=== PATIENT | male | born 1995 | race Hispanic/Latino ===

== ENCOUNTER 2018-01-18 16:16 | Emergency (ER) | payer OTHER ==
[2018-01-18] MEDS ORDERED: HYOSCYAMINE SULFATE 0.125 MG TAB.SUBL SL ONE (17:29)
[2018-01-18] MEDS ORDERED: ACETAMINOPHEN 325 MG TAB ONE (17:29)
[2018-01-18 17:49] LABS: BASOPHILS % (AUTO) 0.2 % (0.0-5.0); EOSINOPHILS % (AUTO) 0.3 % (0.0-8.0); HEMATOCRIT 43.4 % (42-54); LYMPHOCYTES % (AUTO) 12.4 % (21.0-51.0); MEAN CORPUSCULAR HGB CONC 34.8 g/dL (32.0-36.0); MEAN CORPUSCULAR VOLUME 83.4 fL (79-99); MONOCYTES % (AUTO) 7.8 % (3.0-13.0); NEUTROPHILS % (AUTO) 79.3 % (40.0-77.0); PLATELET COUNT (AUTO) 315 K/uL (130-400); RED CELL DISTRIBUTION WIDTH 13.3 % (11.0-15.5); WHITE BLOOD COUNT (AUTO) 10.8 K/uL (4.8-10.8)
[2018-01-18 18:07] LABS: POTASSIUM 3.3 mmol/L (3.5-5.1)
[2018-01-18 18:10] LABS: ALBUMIN 4.4 g/dL (3.5-5.0); BILIRUBIN,DIRECT 0.2 mg/dL (0.0-0.3); TOTAL PROTEIN, SERUM 8.1 g/dL (6.0-8.3)
[2018-01-18 18:31] LABS: OCCULT BLOOD STOOL SINGLE ONLY NEGATIVE (NEGATIVE)
[2018-01-18] MEDS ORDERED: ONDANSETRON ODT 4 MG TAB ONE (19:10)
== END 2018-01-18 19:16 | disposition home or self-care (01) ==
LOC: EDH 16:16
DX: K52.9 Noninfective gastroenteritis and colitis, unspecified (principal); R50.9 Fever, unspecified; Z98.890 Other specified postprocedural states
CPT/HCPCS: 36415; 80048; 80076; 82270; 85025; 87046; 87205; 87324

== ENCOUNTER 2018-09-18 22:17 | Emergency (ER) | payer OTHER ==
[2018-09-18 22:35] LABS: EOSINOPHILS % (AUTO) 1.7 % (0.0-8.0); HEMATOCRIT 41.4 % (42-54); LYMPHOCYTES % (AUTO) 45.5 % (21.0-51.0); MEAN CORPUSCULAR HEMOGLOBIN 28.6 pg (27.0-33.0); MEAN CORPUSCULAR HGB CONC 34.3 g/dL (32.0-36.0); MEAN CORPUSCULAR VOLUME 83.6 fL (79-99); MONOCYTES % (AUTO) 8.4 % (3.0-13.0); NEUTROPHILS % (AUTO) 43.4 % (40.0-77.0); NUCLEATED RED BLOOD CELLS 0.1 % (0.0-0.19); PLATELET COUNT (AUTO) 330 K/uL (130-400); RED BLOOD CELL COUNT(AUTO) 4.95 MIL/uL (4.50-6.20); RED CELL DISTRIBUTION WIDTH 13.3 % (11.0-15.5); WHITE BLOOD COUNT (AUTO) 8.3 K/uL (4.8-10.8)
[2018-09-18 22:49] LABS: CREATININE 1.1 mg/dL (0.5-1.5); POTASSIUM 3.3 mmol/L (3.5-5.1)
[2018-09-18 22:54] LABS: ALBUMIN 4.1 g/dL (3.5-5.0); BILIRUBIN,TOTAL 0.5 mg/dL (0.2-1.0); TOTAL PROTEIN, SERUM 7.5 g/dL (6.0-8.3)
[2018-09-18] MEDS ORDERED: SODIUM CHLORIDE 0.9% 1000ML 1,000 ML IV ONE (23:25)
[2018-09-18] MEDS ORDERED: POTASSIUM CHLORIDE 10% ELIXIR 20 MEQ/15 ML UDCUP ONE (23:25)
[2018-09-18] MEDS ORDERED: KETOROLAC TROMETHAMINE 15MG/ML ONE (23:26)
[2018-09-18 23:35] LABS: APPEARANCE,URINE Clear (CLEAR); BILIRUBIN,URINE Negative (NEGATIVE); COLOR,URINE Yellow (YELLOW); GLUCOSE, URINE (UA) Negative (NEGATIVE); KETONES,URINE Negative (NEGATIVE); LEUKOCYTE ESTERASE ,URINE Negative (NEGATIVE); NITRATE,URINE Negative (NEGATIVE); OCCULT BLOOD,URINE Negative (NEGATIVE); PROTEIN,URINE Negative (NEGATIVE)
[2018-09-18 23:43] LABS: AMPHET/METH SCREEN,URINE NEGATIVE (NEGATIVE); BARBITURATE SCREEN, URINE NEGATIVE (NEGATIVE); BENZODIAZEPINES SCREEN,URINE NEGATIVE (NEGATIVE); CANNABINOID SCREEN,URINE NEGATIVE (NEGATIVE); COCAINE SCREEN,URINE NEGATIVE (NEGATIVE); OPIATE SCREEN,URINE NEGATIVE (NEGATIVE); PHENCYCLIDINE SCREEN,URINE NEGATIVE (NEGATIVE)
[2018-09-19] MEDS ORDERED: ACETAMINOPHEN EXTRA STRENGTH 500 MG TABLET ONE (00:05)
[2018-09-19] MEDS ORDERED: SUCRALFATE 1 GM TABLET ONE (00:06)
== END 2018-09-19 00:58 | disposition home or self-care (01) ==
LOC: EDH 22:17
DX: R07.89 Other chest pain (principal); E87.6 Hypokalemia; E86.0 Dehydration; I44.0 Atrioventricular block, first degree
CPT/HCPCS: 36415; 71046; 80053; 80305; 81003; 84484; 85025; 93005; 96361; 96374; 99284; J1885; J7030

== ENCOUNTER 2025-08-16 03:48 | Emergency (ER) | payer BC ==
[~2025-08-16] VITALS: Ht 177.8 cm; Wt 87.5 kg
[2025-08-16 04:26] LABS: RAPID GROUP A STREP negative (NEGATIVE)
[2025-08-16 04:28] LABS: SARS-CoV-2, RNA, NAAT NEGATIVE SARS CoV-2 (NEGATIVE)
[2025-08-16 04:34] LABS: INFLUENZA TYPE A Negative For Type A (NEGATIVE); INFLUENZA TYPE B Negative For Type B (NEGATIVE)
[2025-08-16 05:23] VITALS: TEMP 103.2
--- NOTE | 2025-08-16 05:26 | ERN ---
ED Note History of Present Illness Stated Complaint: C/O COUGH,BODYACHES,SORE THROAT,FEVER, CHILLS Chief Complaint: Cough Time Seen by MD: 04:29 Dictation: This is a 30-year-old male who presented to the emergency room with complaints of URI symptoms and high fevers up to 101.2. All this started yesterday with a profuse chills and fever along with body aches. He also reported sore throat. No recent travel or other sick contacts. He is accompanied by his father. Temperature 101.2 pulse 69 respirations 20 blood pressure 130/76 with a pulse oximetry of 99% on room air Allergies: Coded Allergies: No Known Allergies (Unverified Allergy, Unknown, 08/16/25) Past Medical History Past Medical History: No Pertinent History Surgical History: None Family History: Negative Social History: Negative RN Note Reviewed/Agreed w/PFSH: Yes Review of System Dictation Constitutional: Positive for fever,chills, and severe body aches Eyes: Negative for injury, pain,redness, and discharge ENT: Negative for injury,pain or swelling positive for sore throat Cardiovascular: Negative for chest pain, palpitations, and edema Respiratory: Negative for shortness of breath, positive for cough, and congestion Abdomen/GI: Negative for abdominal pain, nausea, vomiting, diarrhea, and constipation Back: Negative for injury and pain : Negative for injury, bleeding and discharge MS/Extremity: Negative for injury and deformity Skin: Negative for rash, and discoloration Neuro: Negative for headache, weakness, numbness, tingling, and seizure Psych: Negative for suicide ideation, homicidal ideation, and hallucinations Initial Vital Sign VS Vital Signs Date Time Temp Pulse Resp B/P (MAP) Pulse Ox O2 Delivery O2 Flow Rate FiO2 08/16/25 03:50 101.1 69 20 130/76 99 Room Air 08/16/25 05:23 0 21 Physical Exam Dictation General: awake, alert, NAD appears flushed Head/Face: Normocephalic, atraumatic Eyes: PERRL, EOMI, vision at baseline ENT: oral cavity clear, TMs clear, no signs of infection Neck: Trachea midline, supple, no nuchal rigidity Cardiovascular: RRR, normal S1/S2, No MRGs, no JVD Respiratory: CTAB, no respiratory distress, No rales or wheezes Abdomen: Soft, non-tender, non-distended, normal bowel sounds, no guarding or rebound. Skin: Warm, dry, normal turgor, no rash MS/Extremity: Pulses equal, no cyanosis, neurovascular intact, FROM Neuro: COAx4, GCS 15, strength 5/5, CN 2-12 intact, normal cerebellar exam, normal gait, Psych: Normal behavior, mood, and affect normal Extremities-trace edema without any palpable cords, Homans sign is negative Results (Laboratory/Radiology) Laboratory/Radiology Laboratory Tests Test 08/16/25 04:00 08/16/25 05:38 Influenza Type A Antigen Negative For Type A Influenza Type B Antigen Negative For Type B SARS-CoV-2, RNA, NAAT NEGATIVE SARS CoV-2 Group A Streptococcus Rapid negative (NEGATIVE) White Blood Count 7.0 K/uL (4.8-10.8) Red Blood Count 5.26 MIL/uL (4.50-6.20) Hemoglobin 14.7 g/dL (14.0-18.0) Hematocrit 43.4 % (42-54) Mean Corpuscular Volume 82.5 fL (79-99) Mean Corpuscular Hemoglobin 27.9 pg (27.0-33.0) Mean Corpuscular Hemoglobin Concent 33.9 g/dL (32.0-36.0) Red Cell Distribution Width 12.7 % (11.0-15.5) Platelet Count 321 K/uL (130-400) Mean Platelet Volume 9.2 fL (7.5-10.5) Immature Granulocyte % (Auto) 0.6 % (0-1) Neutrophils (%) (Auto) 69.3 % (40.0-77.0) Lymphocytes (%) (Auto) 11.4 % (21.0-51.0) L Monocytes (%) (Auto) 14.1 % (3.0-13.0) H Eosinophils (%) (Auto) 4.0 % (0.0-8.0) Basophils (%) (Auto) 0.6 % (0.0-5.0) Neutrophils # (Auto) 4.8 K/uL (1.8-7.7) Lymphocytes # (Auto) 0.8 K/uL (1.0-4.8) L Monocytes # (Auto) 1.0 K/uL (0.1-1.0) Eosinophils # (Auto) 0.28 K/uL (0.00-0.70) Basophils # (Auto) 0.04 K/uL (0.00-0.20) Absolute Immature Granulocyte (auto 0.04 K/uL (0-1) Nucleated Red Blood Cells 0.0 % (0.0-0.19) Sodium Level 139 mmol/L (136-145) Potassium Level 3.3 mmol/L (3.5-5.1) L Chloride Level 102 mmol/L (101-111) Carbon Dioxide Level 26 mmol/L (21-32) Blood Urea Nitrogen 19 mg/dL (7-18) H Creatinine 1.1 mg/dL (0.5-1.3) Glomerular Filtration Rate Calc 93 mL/min (>90) Random Glucose 103 mg/dL (70-105) Total Calcium 8.6 mg/dL (8.5-10.1) Labs Reviewed?: Yes ED Course ED Course Orders Procedure Category Date Status Time Covid Rna Naat LAB 08/16/25 Complete 04:01 Influenza Type A & B, LAB 08/16/25 Complete Rapid 04:01 Rapid (Group A Strep) LAB 08/16/25 Complete 04:01 Ketorolac PHA 08/16/25 Complete Tromethamine 30mg/Ml 05:30 Cbc With Differential LAB 08/16/25 Complete 05:24 Basic Metabolic Panel LAB 08/16/25 Complete 05:24 Urinalysis Profile LAB 08/16/25 Logged 05:24 Chest 1vw RAD 08/16/25 Taken 05:24 0.9%Nacl 1000ml (Ns PHA 08/16/25 In Process 1000ml) 05:30 Potassium Bicarb/Cit PHA 08/16/25 Complete Ac 25meq (K-Lyte Ta 06:30 Current Medications Medications (Trade) Dose Ordered Sig/Christiano Route PRN Reason Start Time Stop Time Status Last Admin Dose Admin Ketorolac Tromethamine (toRADol) 30 mg ONCE ONCE IM 08/16/25 05:30 08/16/25 05:32 DC 08/16/25 05:40 Potassium Bicarbonate (K-Lyte Tablet Eff 25 Meq Tablet.eff) 25 meq ONCE ONCE PO 08/16/25 06:30 08/16/25 06:33 DC Sodium Chloride 2,625 ml @ 875 mls/hr ONCE ONCE IV 08/16/25 05:30 08/16/25 08:29 08/16/25 05:40 Vital Signs Date Time Temp Pulse Resp B/P (MAP) Pulse Ox O2 Delivery O2 Flow Rate FiO2 08/16/25 05:23 103.3 89 19 148/79 100 Room Air* 0 21 08/16/25 03:50 101.1 69 20 130/76 99 Room Air Medical Decision Making MDM Differential diagnosis: Influenza, COVID, RSV, streptococcal pharyngitis, otitis media, acute viral syndrome This is a 30-year-old male who presented to the emergency room with complaints of URI symptoms and high fevers up to 101.2. All this started yesterday with a profuse chills and fever along with body aches. He also reported sore throat. No recent travel or other sick contacts. He is accompanied by his father. Temperature 101.2 pulse 69 respirations 20 blood pressure 130/76 with a pulse oximetry of 99% on room air 6:19 a.m. CBC is with a normal limits BNP shows a potassium of 3.3. Nasopharyngeal swabs for influenza, COVID and rapid strep were all negative. Chest x-ray is unremarkable for any focal infiltrate. Symptomatic management with antiemetics, antipyretics and NSAIDs . Hydration I updated the patient and son about unrevealing labs except for a mild hypokalemia. I explained to them that this may still be a viral syndrome. Rationale: Tests considered and ordered secondary to shared decision making include: Labs Previous outside records reviewed: Old ER visits. Risk of complication and/or morbidity or mortality of patient management: None Medications-Per medication reconciliation Need for hospitalization: Patient does not meet criteria for hospitalization. Need for emergency major/minor surgery: No There are no social concerns with this patient. Prescription drug management Prescriptions will include symptomatic care Patient's prior external medical records from other ER visits were reviewed by me as indicated. Prior testing and results from previous visits were reviewed. Prior tests were taken into account with medical decision making and resource utilization, independent historian/historians were used to obtain complete medical history. I independently interpreted the test that were performed, results were reviewed by me and considered findings on radiology if ordered. Medical management and examination interpretation discussions were had by me with other qualified healthcare professionals as indicated for the patient's care. Problem List Problem List: (1) Pharyngitis (2) Fever (3) URI (upper respiratory infection) DX & DISP Disposition: Discharge Departure Impression: Primary Impression: Pharyngitis Additional Impressions: Fever, URI (upper respiratory infection) Condition: Stable Additional Instructions: Patient and the caregiver have been informed of all the diagnostic tests and the imaging conducted during the today's visit to the emergency room and has verbalized understanding of the results I have personally reviewed and interpreted all diagnostic exams performed here in the ER today as well as the vital signs documented by the nursing staff. The patient is now being discharged to home and should follow up with the primary care physician or the specialist as directed by the ER staff. Referrals: EDNA OLVERA (PCP) HELENA CEJA MD Aug 16, 2025 05:26
[2025-08-16] MEDS: [UNRECOGNIZED DRUG - OTHER] IV ONE (05:40)
[2025-08-16 05:48] LABS: IMMATURE GRANULOCYTE ABSOLUTE 0.04 K/uL (0-1); NUCLEATED RED BLOOD CELLS 0.0 % (0.0-0.19); PLATELET COUNT (AUTO) 321 K/uL (130-400); RED BLOOD CELL COUNT(AUTO) 5.26 MIL/uL (4.50-6.20); RED CELL DISTRIBUTION WIDTH 12.7 % (11.0-15.5); WHITE BLOOD COUNT (AUTO) 7.0 K/uL (4.8-10.8)
[2025-08-16 06:01] LABS: CREATININE 1.1 mg/dL (0.5-1.3); GLOMERULAR FILTR. RATE CALC 93.0 mL/min (>90); GLUCOSE,RANDOM 103.0 mg/dL (70-105); SODIUM SERUM 139.0 mmol/L (136-145); UREA NITROGEN, BLOOD 19.0 mg/dL (7-18)
[2025-08-16 07:42] VITALS: BP 132/76; PULSE 91; RESP 18; O2SAT 97
--- NOTE | 2025-08-18 18:13 | HMCIMG ---
EXAM: CR Chest, 1 view CLINICAL HISTORY: Cough. High fever. COMPARISON: None provided. FINDINGS: The lungs show no infiltrates or other acute findings. No pleural effusion or pneumothorax. The cardiomediastinal silhouette is within normal limits. No acute osseous abnormality. IMPRESSION: No acute cardiopulmonary process is evident. /[place]
== END 2025-08-16 08:57 | disposition home or self-care (01) ==
LOC: EDH 03:48
DX: J06.9 Acute upper respiratory infection, unspecified (principal); J02.9 Acute pharyngitis, unspecified; Z20.822 Contact with and (suspected) exposure to COVID-19
CPT/HCPCS: 99284; 96374; 71045; 87635; 96361; 80048; 85025; 87880; 87804 ×2; 36415; 96372; J1885; J7030; J2405